=== PATIENT | female | born 1970 | race Caucasian/White ===

== ENCOUNTER 2017-08-03 17:54 | Emergency (ER) | payer BC ==
[~2017-08-03] VITALS: Ht 157.5 cm; Wt 95.4 kg
[~2017-08-03 17:54] MED LIST: LABETALOL HCL200 MG PO; LASIX40 MG PO; LOSARTAN POTAS100 MG PO; NOHOMEMEDS
[2017-08-03 21:19] VITALS: BP 137/89
== END 2017-08-03 21:21 | disposition home or self-care (01) ==
LOC: RME 17:54 → EME 17:54 → RME 21:21
DX: J40 Bronchitis, not specified as acute or chronic (principal); I10 Essential (primary) hypertension; Z87.891 Personal history of nicotine dependence
CPT/HCPCS: 93005; 94640; 99281; 99284; J7512

== ENCOUNTER 2018-04-01 21:11 | Emergency (ER) | payer BC ==
[~2018-04-01] VITALS: Ht 157.5 cm; Wt 96.2 kg
[2018-04-02 01:01] LABS: BASOPHIL (%) 0.3 % (0-1); EOSINOPHIL (%) 0.3 % (0-5); HEMATOCRIT 38.4 % (36.0-46.0); HEMOGLOBIN 13.4 G/DL (11.9-15.5); IMMATURE GRANULOCYTE (%) 0.9 % (0.0-0.7); LYMPHOCYTE (%) 15.4 % (15-42); LYMPHOCYTE COUNT 1.8 K/uL (1.0-2.8); MCH 31.1 PG (29.0-34.0); MCHC 34.9 G/DL (30.0-36.0); MCV 89.1 FL (83-99); MONOCYTE (%) 3.2 % (3-12); MONOCYTE COUNT 0.4 K/uL (0-0.8); NEUTROPHIL (%) 79.9 % (45-76); NEUTROPHIL COUNT 9.3 K/uL (1.8-6.4); PLATELET COUNT 249 K/uL (156-360); RBC DIS.WIDTH-CV 13.5 % (11.8-14.6); RBC DIS.WIDTH-SD 44.1 % (39-53); RED BLOOD COUNT 4.31 M/uL (3.80-5.20); WHITE BLOOD COUNT 11.7 K/uL (4.1-10.2)
[2018-04-02 01:31] LABS: CHLORIDE 106 mEq/L (99-109); POTASSIUM 3.5 mEq/L (3.7-5.4); SODIUM 142 mEq/L (136-147)
[2018-04-02 01:32] LABS: GLUCOSE 148 mg/dL (70-99)
[2018-04-02 01:36] LABS: CREATININE 1.1 mg/dL (0.6-1.3); GFR ESTIMATE (CALCULATED) 56 mL/min/
[2018-04-02 01:37] LABS: UREA NITROGEN (BUN) 21 mg/dL (9-23)
[2018-04-02] MEDS ORDERED: ULTRAM50 MG PO (02:02)
[2018-04-02 02:08] VITALS: BP 94/68
== END 2018-04-02 02:23 | disposition home or self-care (01) ==
LOC: EME 21:11
PROVIDERS: Emergency Medicine
DX: M54.9 Dorsalgia, unspecified (principal); R91.1 Solitary pulmonary nodule; M89.8X8 Other specified disorders of bone, other site; I10 Essential (primary) hypertension; J45.909 Unspecified asthma, uncomplicated; F17.200 Nicotine dependence, unspecified, uncomplicated; Z88.6 Allergy status to analgesic agent; Z88.5 Allergy status to narcotic agent
CPT/HCPCS: 71250; 72128; 80048; 85025; 99281; 99284